=== PATIENT | male | born 1985 | race Caucasian/White ===

== ENCOUNTER 2020-08-26 10:48 | Emergency (ER) | payer SELFPAY ==
[~2020-08-26] VITALS: Ht 175.3 cm; Wt 106.6 kg
[2020-08-26 10:54] VITALS: BP 150/117
[2020-08-26] MEDS: ONDANSETRON 4 MG ODT PO ONE (12:30)
[2020-08-26] MEDS: LORazepam 2 MG/ML VIAL IM ONE (13:51)
[2020-08-26] MEDS ORDERED: ONDA-24 SL (14:01)
[2020-08-26 14:18] VITALS: BP 170/98
== END 2020-08-26 14:10 | disposition home or self-care (01) ==
LOC: MED 10:48
DX: R42 Dizziness and giddiness (principal); R11.0 Nausea; Z79.899 Other long term (current) drug therapy; Z98.2 Presence of cerebrospinal fluid drainage device
CPT/HCPCS: 70450; 96372; 99284; J2060; Q0162